=== PATIENT | female | born 1965 | race Hispanic/Latino ===

== ENCOUNTER 2016-12-10 07:53 | Emergency (ER) | payer SELFPAY ==
[2016-12-10 08:32] LABS: #Basophils 0.1 thou/uL (0.0-0.2); #Eosinphils 0.1 thou/uL (0.0-0.7); #Lymphocytes 1.5 thou/uL (1.20-3.40); #Monocytes 0.6 thou/uL (0.11-0.59); #Neutrophils 2.7 thou/uL (1.40-6.50); %Basophils 1.3 % (0.0-1.0); %Eosinophils 2.3 % (0.0-10.0); %Lymphocytes 30.6 % (21.0-51.0); %Monocytes 11.2 % (0.0-10.0); Hematocrit 41.9 % (36.0-47.0); Mean Platelet Volume 9.4 fL (7.4-10.4); Red Blood Cell (RBC) Count 4.94 mill/uL (4.20-5.40); White Blood Cell (WBC) Count 4.9 thou/uL (4.8-10.8)
[2016-12-10 08:41] LABS: Bilirubin Negative (Negative); Blood, Urine Small (Negative); Glucose, Urine (Dipstick) >=1000 mg/dL (Negative); Ketone, Urine Trace mg/dL (Negative); Nitrite Negative (Negative); Protein, Urine (Dipstick) Negative (Neg-Trace)
[2016-12-10 08:43] LABS: Bacteria/HPF None Seen HPF (None Seen); Hyaline Casts/LPF 0-3 HYALINE CAST LPF (0-3 Hyaline); Squamous Epithelial 0-3 HPF (0-3); WBC/HPF 0-3 HPF (0-3)
[2016-12-10 08:55] LABS: RBC/HPF 0-3 HPF (0-3)
[2016-12-10 08:55] LABS: ALT (SGPT) 56 U/L (8-55); AST (SGOT) 41 U/L (5-34); Alkaline Phosphatase 159 U/L (40-150); Anion Gap 8 mmol/L (10-20); BUN (Urea Nitrogen) 11 mg/dL (7.0-18.7); Bilirubin, Total 0.4 mg/dL (0.2-1.2); Calc. Creatinine Clearance 0 mL/min (70-130); Calcium 8.3 mg/dL (7.8-10.44); Carbon Dioxide 29 mmol/L (22-29); Chloride 101 mmol/L (98-107); Estimated GFR-MDRD Greater than 90; Globulin 3.4 g/dL (2.4-3.5); Lipase 25 U/L (8-78); Protein, Total 7.2 g/dL (6.0-8.3)
[2016-12-10 08:56] LABS: Yeast-All Forms None Seen HPF (None Seen)
[2016-12-10] MEDS ORDERED: Ketorolac Tromethamine 30 MG/ML VIAL ONE (09:03)
--- NOTE | 2016-12-10 09:44 | CT ---
CT ABDOMEN AND PELVIS WITHOUT CONTRAST: Technique: Multiple axial tomograms were obtained through the abdomen and pelvis without IV enhancem ent. History: Left flank and back pain. Frequency of urination. Abdominal pain. FINDINGS: Liver, spleen, and pancreas unremarkable. Adrenal glands appear normal. Kidneys show no evidence of hydronephrosis. There is no evidence of urinary tract calculus. Ureters are normal caliber. The urinary bladder is unremarkable. Small bowel loops are normal caliber. The appendix appears normal. Aorta and retroperitoneum appear unremarkable. No adenopathy. Uterus and adnexa appear unremarkable. IMPRESSION: There is no evidence of urinary tract calculus or obstruction. No acute process identified. POS: [facility]
[2016-12-10] MEDS ORDERED: Potassium Chloride 20 MEQ TAB ONE ×2 (10:04)
== END 2016-12-10 10:45 | disposition home or self-care (01) ==
LOC: ERS 07:53
DX: E11.65 Type 2 diabetes mellitus with hyperglycemia (principal); E87.6 Hypokalemia; R31.9 Hematuria, unspecified; E78.5 Hyperlipidemia, unspecified; I10 Essential (primary) hypertension; Z79.899 Other long term (current) drug therapy
CPT/HCPCS: 36415; 74176; 80053; 81003; 81015; 81025; 83690; 85025; 96372; J1885

== ENCOUNTER 2017-05-13 08:19 | Emergency (ER) | payer SELFPAY ==
[2017-05-13] MEDS ORDERED: Lorazepam 2 MG/ML VIAL ONE (08:29)
[2017-05-13 08:50] LABS: #Eosinphils 0.1 thou/uL (0.0-0.7); #Lymphocytes 2.2 thou/uL (1.20-3.40); #Monocytes 0.4 thou/uL (0.11-0.59); #Neutrophils 3.8 thou/uL (1.40-6.50); %Basophils 0.5 % (0.0-1.0); %Eosinophils 1.8 % (0.0-10.0); %Lymphocytes 33.5 % (21.0-51.0); %Monocytes 6.3 % (0.0-10.0); %Neutrophils 57.8 % (42.0-75.0); Hemoglobin 14.7 g/dL (12.0-16.0); Mean Corpuscular HGB CONC 33.9 g/dL (32.0-36.0); Mean Corpuscular Volume 85.5 fl (81.0-99.0); Mean Platelet Volume 9.4 fL (7.4-10.4); Platelet Count 208 thou/uL (130-400); RBC Distribution Width 12.4 % (11.5-14.5); Red Blood Cell (RBC) Count 5.07 mill/uL (4.20-5.40); White Blood Cell (WBC) Count 6.5 thou/uL (4.8-10.8)
--- NOTE | 2017-05-13 09:00 | RAD ---
PORTABLE UPRIGHT FRONTAL CHEST RADIOGRAPH: Date: 05-13-17 Comparison: 11-26-13 History: Tachycardia and chest pain. FINDINGS: Heart and mediastinal contours appear grossly unremarkable. No pneumothorax, pleural fluid, focal con solidation or alveolar edema. IMPRESSION: No acute findings. POS: [facility]
[2017-05-13 09:10] LABS: ALT (SGPT) 42 U/L (8-55); AST (SGOT) 21 U/L (5-34); Albumin 4.4 g/dL (3.5-5.0); Alkaline Phosphatase 187 U/L (40-150); Anion Gap 14 mmol/L (10-20); BUN (Urea Nitrogen) 15 mg/dL (7.0-18.7); Bilirubin, Total 0.4 mg/dL (0.2-1.2); Calc. Creatinine Clearance 0 mL/min (70-130); Calcium 9.1 mg/dL (7.8-10.44); Carbon Dioxide 26 mmol/L (22-29); Chloride 99 mmol/L (98-107); Estimated GFR-MDRD 86; Globulin 3.3 g/dL (2.4-3.5); Glucose 323 mg/dL (70-105); Potassium 3.6 mmol/L (3.5-5.1); Protein, Total 7.7 g/dL (6.0-8.3); Sodium 135 mmol/L (136-145)
[2017-05-13 09:15] LABS: CKMB 0.4 ng/mL (0-6.6); Troponin I Less than 0.010 ng/mL (< 0.028)
[2017-05-13] MEDS ORDERED: Acetaminophen 500 MG TAB ONE (10:00)
--- NOTE | 2017-06-10 15:05 | EKG ---
Test Reason : Blood Pressure : / mmHG Vent. Rate : 080 BPM Atrial Rate : 080 BPM P-R Int : 138 ms QRS Dur : 076 ms QT Int : 370 ms P-R-T Axes : 027 015 003 degrees QTc Int : 426 ms Normal sinus rhythm Normal ECG Confirmed by GEORGE FERNANDEZ ([id number]), news editor ALANIS SMITH ([id number]) on 06/10/2017 3:04:20 PM Referred By: REBECCA Confirmed By:GEORGE FERNANDEZ
== END 2017-05-13 10:43 | disposition home or self-care (01) ==
LOC: ERS 08:19
DX: R07.2 Precordial pain (principal); E11.9 Type 2 diabetes mellitus without complications; E78.5 Hyperlipidemia, unspecified; I10 Essential (primary) hypertension; Z79.84 Long term (current) use of oral hypoglycemic drugs; Z79.899 Other long term (current) drug therapy
CPT/HCPCS: 71045; 80053; 82553; 84484; 85025; 85379; 93005; 96374; J2060

== ENCOUNTER 2018-02-25 18:15 | Observation (INO) | payer SELFPAY ==
[2018-02-25 19:08] LABS: #Eosinphils 0.1 thou/uL (0.0-0.7); #Lymphocytes 2.4 thou/uL (1.20-3.40); #Monocytes 0.6 thou/uL (0.11-0.59); #Neutrophils 5.7 thou/uL (1.40-6.50); %Basophils 0.5 % (0.0-1.0); %Eosinophils 1.4 % (0.0-10.0); %Lymphocytes 27.5 % (21.0-51.0); %Monocytes 6.8 % (0.0-10.0); %Neutrophils 63.7 % (42.0-75.0); Hemoglobin 13.3 g/dL (12.0-16.0); Mean Corpuscular HGB CONC 33.5 g/dL (32.0-36.0); Mean Corpuscular Hemoglobin 28.6 pg (27.0-31.0); Mean Corpuscular Volume 85.3 fL (78.0-98.0); Mean Platelet Volume 9.4 fL (7.4-10.4); Platelet Count 260 thou/uL (130-400); RBC Distribution Width 12.7 % (11.5-14.5); Red Blood Cell (RBC) Count 4.65 mill/uL (4.20-5.40); White Blood Cell (WBC) Count 8.9 thou/uL (4.8-10.8)
--- NOTE | 2018-02-25 19:23 | RAD ---
EXAM: CHEST TWO VIEWS 02/25/18 HISTORY: Chest pain. FINDINGS: Heart size is normal. The lungs are clear. No confluent pneumonia, overt edema, or pleural effusion. IMPRESSION: No acute intrathoracic disease. Stable from 05/13/17. POS: [facility]
[2018-02-25 19:29] LABS: ALT (SGPT) 38 U/L (8-55); AST (SGOT) 22 U/L (5-34); Albumin 4.6 g/dL (3.5-5.0); Alkaline Phosphatase 128 U/L (40-150); Anion Gap 15 mmol/L (10-20); BUN (Urea Nitrogen) 10 mg/dL (9.8-20.1); Bilirubin, Total 0.5 mg/dL (0.2-1.2); CK (CPK) 95 U/L (29-168); Calc. Creatinine Clearance 0 mL/min (70-130); Calcium 9.8 mg/dL (7.8-10.44); Carbon Dioxide 29 mmol/L (22-29); Chloride 100 mmol/L (98-107); Estimated GFR-MDRD Greater than 90; Globulin 3.7 g/dL (2.4-3.5); Glucose 145 mg/dL (70-105); Potassium 3.3 mmol/L (3.5-5.1); Protein, Total 8.3 g/dL (6.0-8.3); Sodium 141 mmol/L (136-145)
[2018-02-25] MEDS ORDERED: Nitroglycerin 0.4 MG TAB (25 Tab Bottle) ONE (20:25)
--- NOTE | 2018-02-25 22:28 | CT ---
BRAIN CT WITHOUT IV CONTRAST: 02/25/18 HISTORY: Headache, mid sternal chest pain. Bitemporal headaches. There is evidence for enlargement of the sella turcica with an intrasellar mass. There is no midline shift. No acute hemorrhage. Sinuses and mastoids are clear. IMPRESSION: Evidence for enlargement of the sella turcica with an intrasellar mass. Nonemergent followup with bra in MRI with pituitary protocol with and without IV contrast is suggested for following this up. No ot her significant acute intracranial process. POS: [facility]
[2018-02-25] MEDS ORDERED: Metoclopramide HCl 10 MG/2 ML VIAL ONE (22:34)
[2018-02-25] MEDS ORDERED: diphenhydrAMINE 50 MG/ML VIAL ONE (22:36)
[2018-02-25 23:24] LABS: Troponin I Less than 0.010 ng/mL (< 0.028)
[2018-02-26 02:27] LABS: Troponin I Less than 0.010 ng/mL (< 0.028)
[2018-02-26] MEDS ORDERED: Acetaminophen 325 MG TAB PO PRN (02:41)
[2018-02-26] MEDS ORDERED: Calcium Carbonate 500 MG ChewTAB PO PRN (02:41)
[2018-02-26] MEDS ORDERED: Bisacodyl 5 MG TAB PO PRN (02:41)
[2018-02-26] MEDS ORDERED: Senokot S 8.6-50 MG TAB PO PRN (02:41)
[2018-02-26] MEDS ORDERED: Nitroglycerin 0.4 MG TAB (25 Tab Bottle) PO PRN (02:41)
[2018-02-26] MEDS ORDERED: HumaLOG 300 UNITS/3 ML VIAL SC PRN ×2 (02:46)
[2018-02-26] MEDS ORDERED: Dextrose 50% Abboject 50 ML SYRINGE SLOW IVP PRN (02:46)
[2018-02-26] MEDS ORDERED: Dextrose 5% in Water 1,000 ML IV PRN (02:46)
[2018-02-26 04:02] LABS: Anion Gap 12 mmol/L (10-20); BUN (Urea Nitrogen) 12 mg/dL (9.8-20.1); Calc. Creatinine Clearance 0 mL/min (70-130); Calcium 8.8 mg/dL (7.8-10.44); Carbon Dioxide 27 mmol/L (22-29); Cardiac Risk 4.8 (Less than 4.5); Chloride 104 mmol/L (98-107); Cholesterol 148 mg/dl (< 200 Desired); Estimated GFR-MDRD Greater than 90; Glucose 162 mg/dL (70-105); HDL Cholesterol 31 mg/dL (>60 Neg Risk); LDL Cholesterol, Calculated 85 mg/dL; Potassium 3.5 mmol/L (3.5-5.1); Sodium 139 mmol/L (136-145); Triglycerides 159 mg/dL (Less than 150)
[2018-02-26 04:23] LABS: #Eosinphils 0.1 thou/uL (0.0-0.7); #Lymphocytes 1.9 thou/uL (1.20-3.40); #Monocytes 0.5 thou/uL (0.11-0.59); #Neutrophils 4.2 thou/uL (1.40-6.50); %Basophils 0.3 % (0.0-1.0); %Eosinophils 1.9 % (0.0-10.0); %Lymphocytes 28.7 % (21.0-51.0); %Monocytes 6.9 % (0.0-10.0); %Neutrophils 62.3 % (42.0-75.0); Hemoglobin 12.1 g/dL (12.0-16.0); Mean Corpuscular HGB CONC 34.2 g/dL (32.0-36.0); Mean Corpuscular Hemoglobin 29.2 pg (27.0-31.0); Mean Corpuscular Volume 85.3 fL (78.0-98.0); Mean Platelet Volume 9.7 fL (7.4-10.4); Platelet Count 233 thou/uL (130-400); RBC Distribution Width 12.8 % (11.5-14.5); Red Blood Cell (RBC) Count 4.14 mill/uL (4.20-5.40); White Blood Cell (WBC) Count 6.7 thou/uL (4.8-10.8)
[2018-02-26] MEDS ORDERED: Famotidine 20 MG TAB ONE (07:39)
[2018-02-26] MEDS ORDERED: Nitroglycerin 2% Ointment 1 INCH/1 GM Packet ONE (07:39)
[2018-02-26] MEDS: Nitroglycerin 2% Ointment 1 INCH/1 GM Packet TOP SCH ×3 (07:53→21:14)
[2018-02-26] MEDS: Hydrochlorothiazide 25 MG TAB PO SCH (09:12)
[2018-02-26] MEDS: Famotidine/PF 20 mg/2ml Vial SLOW IVP SCH ×2 (09:12→21:12)
[2018-02-26] MEDS: Famotidine 20 MG TAB PO SCH ×2 (09:13→21:11)
[2018-02-26 15:04] VITALS: BMI 31.6
[2018-02-26] MEDS ORDERED: Ketorolac Tromethamine 30 MG/ML VIAL IVP SCH (17:00)
--- NOTE | 2018-02-26 17:50 | PDOC.PN ---
- Subjective Encounter Start Date: 02/26/18 Encounter Start Time: 17:48 Patient lying in bed with several family members at bedside. Daughter at bedside translating. Patient complaining of a headache after nitro. She denies chest pain or shortness of breath. Discussed CT results and recommending follow up MRI as outpatient. Denies any vision changes, dizziness or lightheadedness - Objective Resuscitation Status - Order Detail: 02/26/18 02:41 Resuscitation Status Routine Resuscitation Status: FULL: Full Resuscitation MAR Reviewed: Yes Vital Signs & Weight: Vital Signs (12 hours) Temp Pulse Resp BP Pulse Ox 02/26/18 14:41 98.6 F 82 20 164/87 H 97 02/26/18 09:13 98.5 F 74 17 124/77 94 L Weight Weight 162 lb 3.2 oz I&O: 02/25/18 02/26/18 02/27/18 06:59 06:59 06:59 Intake Total 200 Balance 200 Result Diagrams: 02/26/18 03:28 02/26/18 03:28 Additional Labs: Accuchecks 02/26/18 02/26/18 16:55 09:26 POC Glucose 130 H 154 H Radiology Reviewed by me: Yes Phys Exam - Physical Examination Constitutional: NAD HEENT: PERRLA, moist MMs, oral pharynx no lesions Neck: no nodes, no JVD Respiratory: no wheezing, no rales, no rhonchi, clear to auscultation bilateral Cardiovascular: RRR, no significant murmur, no rub Gastrointestinal: soft, non-tender, no distention, positive bowel sounds Musculoskeletal: no edema, pulses present Neurological: non-focal, normal sensation, moves all 4 limbs Lymphatic: no nodes Psychiatric: normal affect, A&O x 3 Skin: no rash, normal turgor, cap refill <2 seconds Dx/Plan (1) Headache Code(s): R51 - HEADACHE Status: Acute (2) 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
[2018-02-26] MEDS ORDERED: Simvastatin 20 MG TAB PO SCH (21:00)
--- NOTE | 2018-02-26 21:40 | HP ---
CHIEF COMPLAINT: Chest pain. HISTORY OF PRESENT ILLNESS: This is a 52-year-old female with past medical history of diabetes mellitus type 2, hyperlipidemia, hypercholesterolemia, hypertension, coming in with chest pain. Per the patient, she has been having chest pain which she has described as pressure-like in sensation, constant, and is midsternal region, and the chest pain has been ongoing since the day prior to the admission. The patient stated that on the day of admission, the chest pain was worsened, and the patient was also having some temporal headaches. Also, the patient acknowledges that the chest pain has been ongoing and now intermittent for the past week, but now the chest pain has been worsened, on the pain scale from 0 to a 10, the patient scales the pain as 8/10. At the time of gathering the history of present illness, the patient stated that the pain is now better due to her being treated in the ED. At this time, the patient denies any shortness of breath, fever, cough, palpitations, abdominal pain, nausea, vomiting, constipation, diarrhea. REVIEW OF SYSTEMS: Positive for chest pain and headaches, otherwise as documented in the HPI. All systems have been reviewed and are negative. PAST MEDICAL HISTORY: Diabetes mellitus type 2, hyperlipidemia, and hypertension. FAMILY HISTORY: Reviewed and noncontributory to this visit. PAST SURGICAL HISTORY: Tubal ligation and . PSYCHIATRIC HISTORY: No psych history. SOCIAL HISTORY: The patient denies alcohol use. Denies any illicit drug use, and denies any smoking history. ALLERGIES: NO KNOWN DRUG ALLERGIES. CURRENT MEDICATIONS: The patient takes; 1. Januvia 25 mg. 2. Hydrochlorothiazide 25 mg. 3. Metformin 850 b.i.d. PHYSICAL EXAMINATION: VITAL SIGNS: The patient's blood pressure is 182/89, pulse of 89, respiratory rate of 16, oxygen saturation of 100. GENERAL: The patient is lying in bed, does not appear to be in any acute distress. The patient is able to speak to me in full sentences. HEENT: Normocephalic, atraumatic. Pupils are equally round and reactive to light. Extraocular movements are intact. No scleral icterus. No conjunctival pallor. Mucous membranes are moist. NECK: Trachea is midline. Full range of motion. No JVD is noted. Supple. LUNGS: Clear to auscultation bilaterally. No wheezing, no rales, no rhonchi appreciated. CARDIAC: Positive S1 and S2. Regular rate and rhythm. No murmurs, no gallops, no rubs appreciated. ABDOMEN: Soft, nontender, and nondistended. Positive bowel sounds in all quadrants. No peritoneal signs. EXTREMITIES: The patient has 5/5 upper extremity strength and 5/5 lower extremity strength. Good pulses bilaterally at the upper and lower extremities bilaterally. NEUROLOGIC: Cranial nerves II through XII grossly intact. No neurologic deficits noted. SKIN: Warm, dry, and intact. PSYCHIATRIC: The patient has normal affect. Alert and oriented x3. The patient is Japanese speaking. DIAGNOSTIC DATA: EK-lead EKG shows sinus rhythm with a rate of 77. CT of the head showed enlargement of the sella turcica with intrasellar mass. Nonemergent MRI followup will be needed. Chest x-ray showed no acute intrathoracic disease, stable from the x-ray from 05/13/2017. LABORATORY DATA: WBC is 8.9, hemoglobin is 13.3, hematocrit is 39.7, RDW is 12.7, and platelet count is 260. Electrolytes; sodium is 141, potassium is 3.3, chloride is 100, carbon dioxide of 29, anion gap of 15, BUN is 10, creatinine is 0.65. Troponins is 0.010 x3. ASSESSMENT AND PLAN: 1. This is a 52-year-old female with multiple comorbidities, being admitted for chest pain, rule out acute coronary syndrome. At this time, the patient's troponin have been negative x3. We are going to continue the patient on aspirin and we will consult Cardiology. We will order echo to followed up on. We will continue to follow up with the patient. We will continue to treat the patient for pain. We will follow up on cardiology's recommendations. 2. Diabetes mellitus type 2, glucose controlled at this time. We will continue the patient on insulin sliding scale. 3. Hypertension. We will monitor the patient's blood pressure. At this time, the patient's blood pressure is uncontrolled by this time. We will give the patient p.r.n. blood pressure medications and we will continue the patient on her home medications. 4. Hyperlipidemia. Continue the patient on home medications. 5. Deep venous thrombosis and gastrointestinal prophylaxis. Job ID: [id number]
[2018-02-27] MEDS: Nitroglycerin 2% Ointment 1 INCH/1 GM Packet TOP SCH ×2 (05:22→13:34)
[2018-02-27 08:22] VITALS: BP 138/64; TEMP 98
[2018-02-27] MEDS: Famotidine/PF 20 mg/2ml Vial SLOW IVP SCH (08:23)
[2018-02-27] MEDS: Hydrochlorothiazide 25 MG TAB PO SCH (08:24)
[2018-02-27] MEDS: Famotidine 20 MG TAB PO SCH (08:24)
== END 2018-02-27 16:26 | disposition home or self-care (01) ==
LOC: ERS 18:15 → ERHOLD 22:28 → 2SW 02-26 14:51
PROVIDERS: ADMIT Internal Medicine; ATTEND Internal Medicine
DX: R07.9 Chest pain, unspecified (principal); I10 Essential (primary) hypertension; I34.0 Nonrheumatic mitral (valve) insufficiency; I36.1 Nonrheumatic tricuspid (valve) insufficiency; E11.9 Type 2 diabetes mellitus without complications; E23.0 Hypopituitarism; E78.00 Pure hypercholesterolemia, unspecified; Z98.51 Tubal ligation status; Z79.84 Long term (current) use of oral hypoglycemic drugs; Z79.899 Other long term (current) drug therapy; Z98.890 Other specified postprocedural states
CPT/HCPCS: 36415; 36416; 70450; 71046; 80048; 80053; 80061; 82550; 84484; 85025; 93005; 93017; 93306; 94760; 96365; 96375; G0378; J1200; J1885; J2765

== ENCOUNTER 2021-01-29 18:04 | Emergency (ER) | payer SELFPAY ==
[2021-01-29] MEDS ORDERED: Dexamethasone 4 mg/ml Vial ONE (20:08)
[2021-01-29] MEDS ORDERED: Metoclopramide HCl 10 MG/2 ML VIAL ONE (20:08)
[2021-01-29] MEDS ORDERED: Ketorolac Tromethamine 30 MG/ML VIAL ONE (20:08)
[2021-01-29 20:34] LABS: #Eosinphils 0.1 thou/uL (0.0-0.7); #Lymphocytes 2.3 thou/uL (1.20-3.40); #Monocytes 0.7 thou/uL (0.11-0.59); #Neutrophils 10.1 thou/uL (1.40-6.50); %Basophils 0.2 % (0.0-1.0); %Eosinophils 0.4 % (0.0-10.0); %Lymphocytes 17.4 % (21.0-51.0); %Monocytes 5.2 % (0.0-10.0); %Neutrophils 76.8 % (42.0-75.0); Mean Corpuscular HGB CONC 33.6 g/dL (32.0-36.0); Mean Corpuscular Hemoglobin 28.9 pg (27.0-31.0); Mean Corpuscular Volume 85.9 fL (78.0-98.0); Platelet Count 281 thou/uL (130-400); RBC Distribution Width 13.9 % (11.5-14.5); Red Blood Cell (RBC) Count 4.49 mill/uL (4.20-5.40); White Blood Cell (WBC) Count 13.1 thou/uL (4.8-10.8)
[2021-01-29 20:58] LABS: ALT (SGPT) 19 U/L (8-55); AST (SGOT) 19 U/L (5-34); Albumin 4.5 g/dL (3.5-5.0); Alkaline Phosphatase 108 U/L (40-110); Anion Gap 13 mmol/L (10-20); BUN (Urea Nitrogen) 16 mg/dL (9.8-20.1); Bilirubin, Total 0.3 mg/dL (0.2-1.2); Calc. Creatinine Clearance 0 mL/min (70-130); Calcium 10.1 mg/dL (7.8-10.44); Carbon Dioxide 29 mmol/L (22-29); Chloride 100 mmol/L (98-107); Globulin 3.8 g/dL (2.4-3.5); Glucose 166 mg/dL (70-105); Potassium 3.1 mmol/L (3.5-5.1); Protein, Total 8.3 g/dL (6.0-8.3); Sodium 139 mmol/L (136-145)
[2021-01-29] MEDS ORDERED: Potassium Chloride 20 MEQ TAB ONE (21:52)
== END 2021-01-29 22:30 | disposition home or self-care (01) ==
LOC: ERS 18:04
DX: R51.9 Headache, unspecified (principal); C75.1 Malignant neoplasm of pituitary gland; I10 Essential (primary) hypertension; E11.9 Type 2 diabetes mellitus without complications; E78.5 Hyperlipidemia, unspecified; E78.00 Pure hypercholesterolemia, unspecified; Z79.84 Long term (current) use of oral hypoglycemic drugs; Z79.899 Other long term (current) drug therapy
CPT/HCPCS: 36415; 70450; 80053; 85025; 96374; 96375; J1100; J1885; J2765